=== PATIENT | female | born 1965 | race Caucasian/White ===

== ENCOUNTER 2017-08-24 23:39 | Emergency (ER) | payer OTHER, SELFPAY ==
[2017-08-24 23:59] LABS: Bilirubin Small (Negative); Blood, Urine Negative (Negative); Clarity Slightly Cloudy (Clear); Glucose, Urine (Dipstick) Negative (Negative); Leukocyte Negative (Negative); Nitrite Negative (Negative); Protein, Urine (Dipstick) Negative (Neg-Trace); Specific Gravity, Urine 1.025 (1.005-1.030); pH, Urine 5.5 (5.0-9.0)
[2017-08-25 00:01] LABS: Pregnancy Test - Urine (BHCG) Negative (Negative)
[2017-08-25 00:02] LABS: Pregu Control Background? CLEAR/WHITE (CLR/WHITE); Pregu Control Bar Appear? YES (CONTROL BAR); Specific Gravity 1.025 (1.002-1.036)
[2017-08-25] MEDS ORDERED: Ketorolac Tromethamine 30 MG/ML VIAL ONE (00:05)
[2017-08-25] MEDS ORDERED: Mag-Al Plus 1200 MG/1200 MG/120 MG/30 ML UDCUP ONE (00:05)
[2017-08-25] MEDS ORDERED: Lidocaine Viscous Sol 2% 15 ml UD Cup ONE (00:05)
[2017-08-25 00:15] LABS: #Basophils 0.1 thou/uL (0.0-0.2); #Eosinphils 0.2 thou/uL (0.0-0.7); #Lymphocytes 1.5 thou/uL (1.20-3.40); #Monocytes 0.4 thou/uL (0.11-0.59); #Neutrophils 2.8 thou/uL (1.40-6.50); %Basophils 1.1 % (0.0-1.0); %Eosinophils 3.9 % (0.0-10.0); %Monocytes 7.8 % (0.0-10.0); %Neutrophils 56.2 % (42.0-75.0); Hemoglobin 14.5 g/dL (12.0-16.0); Mean Corpuscular HGB CONC 34.6 g/dL (32.0-36.0); Mean Corpuscular Hemoglobin 30.9 pg (27.0-31.0); Mean Corpuscular Volume 89.3 fl (81.0-99.0); Mean Platelet Volume 5.7 fL (7.4-10.4); Platelet Count 176 thou/uL (130-400); RBC Distribution Width 11.3 % (11.5-14.5); Red Blood Cell (RBC) Count 4.71 mill/uL (4.20-5.40)
[2017-08-25 00:29] LABS: ALT (SGPT) 124 U/L (8-55); AST (SGOT) 108 U/L (5-34); Albumin 4.2 g/dL (3.5-5.0); Alkaline Phosphatase 211 U/L (40-150); Anion Gap 15 mmol/L (10-20); BUN (Urea Nitrogen) 14 mg/dL (9.8-20.1); Bilirubin, Total 0.4 mg/dL (0.2-1.2); CKMB 0.4 ng/mL (0-6.6); Calc. Creatinine Clearance 0 mL/min (70-130); Calcium 8.8 mg/dL (7.8-10.44); Carbon Dioxide 21 mmol/L (22-29); Chloride 107 mmol/L (98-107); Estimated GFR-MDRD 80; Globulin 2.7 g/dL (2.4-3.5); Glucose 112 mg/dL (70-105); Lipase 26 U/L (8-78); Protein, Total 6.9 g/dL (6.0-8.3); Sodium 139 mmol/L (136-145); Troponin I Less than 0.010 ng/mL (< 0.028)
[2017-08-25] MEDS ORDERED: Azithromycin 250 MG TAB ONE (01:05)
--- NOTE | 2017-08-25 15:47 | CT ---
PRELIMINARY REPORT/[facility]/EMERGENCY AFTER HOURS PROCEDURE: EXAM: CT Abdomen and Pelvis With Intravenous Contrast CLINICAL HISTORY: 52 years old, female; Pain; Abdominal pain; Epigastric; Patient HX: Epigastric pain TECHNIQUE: Axial computed tomography images of the abdomen and pelvis with intravenous contrast. Coronal reformatted images were created and reviewed. COMPARISON: No relevant prior studies available. FINDINGS: Lower thorax: Partially visualized bilateral breast implants. Right lower lobe patchy opacities. ABDOMEN: Liver: Unremarkable. No mass. Gallbladder and bile ducts: Post cholecystectomy. Mild dilation of the common bile duct is likely sec ondary to post cholecystectomy state. Pancreas: Unremarkable. No mass. No ductal dilation. Spleen: Calcified splenic granulomas. Adrenals: Unremarkable. No mass. Kidneys and ureters: Right renal cysts. No hydronephrosis. Stomach and bowel: Unremarkable. No obstruction. No mucosal thickening. Appendix: Normal appendix. PELVIS: Bladder: Unremarkable. No mass. Reproductive: Unremarkable as visualized. ABDOMEN and PELVIS: Intraperitoneal space: Unremarkable. No free air. No significant fluid collection. Bones/joints: No acute fracture. No dislocation. Soft tissues: Unremarkable. Vasculature: Unremarkable. No abdominal aortic aneurysm. Lymph nodes: Unremarkable. No enlarged lymph nodes. IMPRESSION: 1. Patchy opacities in the right lower lobe are concerning for pneumonia. 2. No acute intra-abdominal abnormality. Thank you for allowing us to participate in the care of your patient. Dictated and Authenticated by: Noelle Schwartz MD 08/25/2017 12:48 AM Central Time ([place] & [place]) FINAL REPORT CT OF THE ABDOMEN AND PELVIS WITH CONTRAST: DATE: 08/25/17. FINDINGS: Spiral CT of the abdomen and pelvis was performed for evaluation of epigastric pain. Axial slices we re acquired after giving IV contrast. Oral contrast was withheld by request. Coronal reconstructions were then done. There are a few patchy opacities in the right lower lobe. Early infiltrates here are not excluded. The lungs are otherwise clear. The liver, spleen, pancreas, adrenal glands, and abdominal aorta were unremarkable. There has been a prior cholecystectomy. A few cysts are suggested in the right kidne y and potentially 1 tiny one on the left. No solid renal masses were seen. Regarding the stomach and bowel, they were generally unremarkable. There were no distended loops of intestine. A few loops were fluid filled, but this is a nonspecific finding. There is no thickening of bowel wall or particular thickening of the stomach. No free air or free fluid is seen. The appe ndix appears normal. CT of the pelvis showed no pelvic masses, fluid collections, or inflammatory changes. IMPRESSION: 1. No significant intraabdominal findings. 2. A few patchy opacities of the right lower lobe. In the proper clinical context, an early pneumon ia might be indicated, but these also could be atelectatic in nature as well. Report in agreement with preliminary reading by [email or web address]. POS: HOME
== END 2017-08-25 01:05 | disposition home or self-care (01) ==
LOC: BURERS 23:39
DX: J18.9 Pneumonia, unspecified organism (principal); F17.210 Nicotine dependence, cigarettes, uncomplicated; I10 Essential (primary) hypertension
CPT/HCPCS: 74177; 80053; 81003; 81025; 82553; 83690; 84484; 85025; 93005; 96361; 96374; J1885